=== PATIENT | female | born 1940 | race Caucasian/White ===

== ENCOUNTER → 2025-02-24 10:33 | Outpatient (REF) | payer MEDICARE, SELFPAY | LOC: MRI 3T 10:33 | PROVIDERS: ATTENDING PHYSICIAN Surgery; FAMILY PHYSICIAN Internal Medicine; REFERRING PHYSICIAN Internal Medicine | DX: Z08 Encounter for follow-up examination after completed treatment for malignant neoplasm (principal); Z85.118 Personal history of other malignant neoplasm of bronchus and lung; R91.8 Other nonspecific abnormal finding of lung field | CPT/HCPCS: 70553; A9575 ==